=== PATIENT | female | born 1990 | race Caucasian/White ===

== ENCOUNTER → 2017-05-19 | Outpatient (CLI) | payer BC | END | disposition home or self-care (01) | LOC: SMRI 14:03 | DX: M54.16 Radiculopathy, lumbar region (principal); D49.7 Neoplasm of unspecified behavior of endocrine glands and other parts of nervous system | CPT/HCPCS: 72148 ==

== ENCOUNTER → 2017-05-20 | Outpatient (CLI) | payer BC ==
--- NOTE | ~2017-05-20 | MR112 ---
[facility] A Service of [facility] RADIOLOGY TEXT RESULTS PATIENT: UBALDO BRIGGS LOCATION: [facility] : 88 UNIT #: [id number] AGE: [address]: BRIELLE HIDALGO APRN SEX: F ORDER DR: [id number] [address] [id number] MR#: [id number] Acc #: [id number] NAME: UBALDO BRIGGS : 1990 SEX: F STUDY DATE/TIME: 05/20/2017 12:53 UNIT: [facility] ROOM: STUDY DESCRIPTION: MR Lumbar WWo Contrast Attending Physician: Brielle Hidalgo A.P.R.N. Referring Physician: Brielle Hidalgo A.P.R.N. Ordering Physician: Physician Non-Staff Primary Care Physician: Brielle Hidalgo A.P.R.N. MRI CENTER REPORT This report is preliminary unless electronic signature is present. EXAM Lumbar spine MRI with and without contrast. HISTORY Bilateral leg weakness. Back pain when lying down or sitting for too long. Symptoms since an epidural anesthesia in August 2016. TECHNIQUE Multiplanar imaging of the lumbar spine was performed with and without contrast. 20 mL of MultiHance was used. 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 The tumor occupies most of the spinal canal. It measures 4.2 cm in length and 1.3 cm in diameter with a uniform enhancement pattern after contrast administration and well circumscribed margins. This almost certainly represents an ependymoma. No hemorrhagic components are seen. The conus is normal. The discs have a normal appearance. No paraspinous masses are seen. IMPRESSION Tumor within the spinal canal extending from mid L2 to lower L3 measuring 13 x 42 mm. This almost certainly represents an ependymoma. Recommend neurosurgical consultation. STAT * RESULT Dictated by... Ran Kirby M.D. [facility] A Service of [facility] RADIOLOGY TEXT RESULTS PATIENT: UBALDO BRIGGS LOCATION: [facility] : 88 UNIT #: [id number] AGE: [address]: BRIELLE HIDALGO APRN SEX: F ORDER DR: THIS IS AN ELECTRONICALLY VERIFIED REPORT Ran Kirby M.D. at 05/20/2017 4:40 PM SANTI/margaret TD: 05/20/2017 14:06 JOB #: [id number] MRI CENTER REPORT Page 1 of 1
== END | disposition home or self-care (01) ==
LOC: SMRI 12:46
DX: R93.7 Abnormal findings on diagnostic imaging of other parts of musculoskeletal system (principal); D33.4 Benign neoplasm of spinal cord
CPT/HCPCS: 72158; A9581